=== PATIENT | male | born 1955 | race Caucasian/White ===

== ENCOUNTER 2017-01-11 21:30 | Observation (INO) | payer BC ==
[~2017-01-11] VITALS: Ht 198.1 cm; Wt 119.3 kg
--- NOTE | ~2017-01-11 | EKG ---
PATIENT: ÁNGELA RESENDEZ UNIT #: [id number] Ventricular Rate: 63 BPM Atrial Rate: 63 BPM P-R Interval: 166 ms QRS Duration: 94 ms Q-T Interval: 392 ms QTC Calculation(Bezet): 401 ms P [place]: 94 degrees Calculated R [place]: -11 degrees Calculated T [place]: 57 degrees Diagnosis Line: Normal sinus rhythm Diagnosis Line: Normal ECG Diagnosis Line: No previous ECGs available Diagnosis Line: Confirmed by MARICHUY WALKER MD ([id number]) on 01/12/2017 Diagnosis Line: 6:25:15 PM INTERPRETING MD: DENISE JOYCE
--- NOTE | ~2017-01-11 | HP ---
Unit #: [id number] #: [id number] Patient: ÁNGELA RESENDEZ [id number] [address] [place], [place] [address] [id number] I MR#: [id number] NAME: ÁNGELA RESENDEZ ROOM: 55 Age: 61 Sex: M Admission Date: 01/12/2017 : 1955 Attending Physician: Phong Torres M.D. Primary Care Physician: Rosio Hagan M.D. HISTORY AND PHYSICAL CHIEF COMPLAINT Chest pain. HISTORY OF PRESENT ILLNESS The patient is a 61-year-old male who presented to [facility] secondary to chest pain. He states that on the day of presentation he initially had an episode of diarrhea and then some nausea with vomiting. He states that during some of the vomiting episodes, he began to experience palpitations and then had what felt like "an elephant on his chest." Patient denied any radiation to the neck, jaw, or left arm. No diaphoresis. It resolved spontaneously. PAST MEDICAL HISTORY 1. Hypertension. 2. Hyperlipidemia. 3. Atrial fibrillation, on Coumadin. 4. Type 2 diabetes. 5. Irritable bowel syndrome. 6. Hypothyroidism. PAST SURGICAL HISTORY None, though the patient does have a significant hernia which he has never had operated on. SOCIAL HISTORY Patient denies alcohol, tobacco, or illicit drug use. FAMILY HISTORY Stroke and heart failure. ALLERGIES Penicillin. HOME MEDICATIONS 1. Xanax 1 mg at bedtime. 2. Dicyclomine 10 mg p.o. t.i.d. 3. Glucotrol 10 mg p.o. b.i.d. 4. Metformin 500 mg in the morning and 100 mg in the evening. 5. Atorvastatin 40 mg daily. 6. Clonidine 0.1 mg p.o. b.i.d. 7. Hydralazine 50 mg p.o. q.i.d. 8. Hydrochlorothiazide 12.5 mg p.o. daily. 9. Zestril 40 mg daily. 10. Metoprolol tartrate 100 mg p.o. b.i.d. Unit #: [id number] #: [id number] Patient: ÁNGELA RESENDEZ 11. Synthroid 50 mcg p.o. daily. 12. Flonase 1 spray each nostril daily. 13. Coumadin 7.5 mg p.o. daily. REVIEW OF SYSTEMS A 10-point review of systems was obtained and negative except as per HPI. PHYSICAL EXAMINATION VITAL SIGNS: Temperature 98.5, pulse 78, and blood pressure 143/84. GENERAL: A 61-year-old male in no acute distress who appears stated age. HEENT: Pupils equally round. Extraocular movements intact. Mucous membranes are dry. NECK: Supple. No JVD, no lymphadenopathy. CARDIAC: Irregular rate and rhythm. No murmurs, gallops, or rubs. LUNGS: Clear to auscultation bilaterally. ABDOMEN: Nontender and nondistended. Positive bowel sounds. He does have a hernia. EXTREMITIES: No clubbing, cyanosis, or edema. They are warm and dry. PSYCHIATRIC: Alert and oriented x3. Affect is appropriate. NEUROLOGIC: Cranial nerves II-XII intact grossly. Patient moves all extremities equally and with purpose. SKIN: No rashes, bruises, or ulcers. MUSCULOSKELETAL: No muscle or joint pain. No muscle or joint swelling. DIAGNOSTIC STUDIES LABORATORY: Blood sugar is 165; otherwise, chemistries are essentially normal. CK-MB is 4.7 but troponin is negative. CBC is normal. INR is 1.5. IMAGING: No acute findings in the GI tract. He is noted to have a benign cyst in the right kidney and a large, fat-containing, supraumbilical ventral hernia. ASSESSMENT AND PLAN 1. Chest pain. The patient has been admitted for stress testing. This is most likely secondary to his acute gastrointestinal illness of nausea, vomiting, and diarrhea. If the patient's stress testing is normal, he will be discharged home. 2. Hypertension. Continue home medications. 3. Hyperlipidemia. Continue home medications. 4. Diabetes. Continue home medications. 5. Prophylaxis. No deep venous thrombosis prophylaxis needed as the patient is low risk and will likely be discharged within the next 24 hours. 1. Dictated by Niranjan Kamara TD: 01/12/2017 17:01 JOB #: [id number] Unit #: [id number] #: [id number] Patient: ÁNGELA RESENDEZ HISTORY AND PHYSICAL Page 1 of 1 X Phong Torres MD HISTORY AND PHYSICAL
--- NOTE | ~2017-01-11 | CR72 ---
[facility] A Service of [facility] & [facility] RADIOLOGY TEXT RESULTS PATIENT: ÁNGELA RESENDEZ LOCATION: [facility] 55- : [birth year] UNIT #: [id number] AGE: [address]: Phong Torres MD SEX: M ORDER DR: [id number] [facility] [address] [place], [place] [address] [id number] I MR#: [id number] Acc #: [id number] NAME: ÁNGELA RESENDEZ : 1955 SEX: M STUDY DATE/TIME: 01/11/2017 UNIT: [facility] ROOM: [facility] STUDY DESCRIPTION: CR Chest Single View Portable Attending Physician: Phong Torres M.D. Ordering Physician: Duarte Steward D.O. Primary Care Physician: Rosio Hagan M.D. MEDICAL IMAGING REPORT This report is preliminary unless electronic signature is present EXAM Portable chest 01/11 22:20 hours INDICATIONS Chest pain and vomiting for 1 day. Diarrhea for 3 days. COMPARISON: 08/02/2014. FINDINGS A single AP portable view of the chest shows both lungs to be clear. The heart is normal in size. The mediastinal contour is normal. No significant bone abnormalities are seen. IMPRESSION Normal portable chest. Dictated by... Ernie Strong Jr., M.D. THIS IS AN ELECTRONICALLY VERIFIED REPORT Ernie Strong Jr., M.D. at 01/13/2017 5:50 AM JACKIE/osmani TD: 01/12/2017 09:40 JOB #: [id number] MEDICAL IMAGING REPORT Page 1 of 1 COPY
--- NOTE | ~2017-01-11 | TH ---
Unit #: [id number] #: [id number] Patient: ÁNGELA RESENDEZ [id number] [address] [address] [id number] I MR#: [id number] NAME: ÁNGELA RESENDEZ : 1955 SEX: M STUDY DATE/TIME: 01/12/2017 UNIT: C5B ROOM: 557 STUDY DESCRIPTION: Attending Physician: Phong Torres M.D. Primary Care Physician: Rosio Hagan M.D. CARDIOLOGY REPORT EXAM Exercise Cardiolite stress test, nuclear portion. PROCEDURE Using technetium 99m labeled Cardiolite, rest and stress SPECT images were obtained. Multiple SPECT images were obtained in various views including horizontal and vertical long axis and short axis views of the left ventricle. Images were obtained by gated SPECT method. Patient was administered 10.77 mCi of Cardiolite at rest. Patient was administered 30.8 mCi of Cardiolite at peak exercise. Total exercise time is 6 minutes. On the stress images, there is normal perfusion noted. The rest images show mild decreased isotope activity intra-apically consistent with soft tissue artifact. Comparing rest and stress images, there is no stress-induced ischemia noted. The left ventricular ejection fraction is calculated to be 48%. There is mild global hypokinesis seen. The left ventricular cavity is moderately dilated both at rest and post stress. CONCLUSION 1. No obvious stress-induced ischemia noted. 2. The left ventricular ejection fraction is calculated to be 48%. 3. There is mild global hypokinesis seen. 4. The left ventricular cavity is moderately dilated both at rest and post-stress. 5. Suspicion for mild nonischemic dilated cardiomyopathy. 6. Technically limited study due to patient's body habitus. Clinical correlation is requested. 1. Dictated by... Niranjan Stevens TD: 01/12/2017 14:29 JOB #: [id number] Unit #: [id number] #: [id number] Patient: ÁNGELA RESENDEZ CARDIOLOGY REPORT Page 1 of 1 X Bertha Flores MD <ELECTRONICALLY SIGNED> 02/19/17 1524 CARDIOLOGY REPORT
--- NOTE | ~2017-01-11 | ST ---
Unit #: [id number] #: [id number] Patient: ÁNGELA RESENDEZ [id number] [place], [place] [address] [id number] I MR#: [id number] NAME: ÁNGELA RESENDEZ : 1955 SEX: M STUDY DATE/TIME: 01/12/2017 UNIT: C5B ROOM: 557 STUDY DESCRIPTION: Cardiac stress test. Attending Physician: Phong Torres M.D. Primary Care Physician: Rosio Hagan M.D. CARDIOLOGY REPORT EXAM Exercise Cardiolite stress test. FINDINGS Baseline EKG normal sinus rhythm with a rate of 75 beats per minute, with Q waves noted in V1 and V2, with questionable old septal infarct. The patient exercised on the treadmill using Lakhwinder protocol for 6 minutes, achieving a workload of 7.00 METS and 101% of the maximum age-predicted heart rate was reached at 163 beats per minute, with a maximum blood pressure response of 230/96 mmHg. The patient had no complaints of chest pain, palpitations or dizziness. EKG during exercise showed no ST-T wave abnormalities. It was noted for premature ventricular complexes. Occasional premature atrial complexes were also seen. The test was terminated secondary to achieving target heart rate. IMPRESSION 1. Functional class 2 with fair exercise tolerance with a workload of 7.00 METS. 2. 101% of the maximal age-predicted heart rate was reached at 162 beats per minute, with a hypertensive blood pressure response. 3. The patient had no complaints of chest pain, palpitations or dizziness. 4. EKG during exercise showed no ST-T wave abnormalities. It was noted for frequent premature ventricular complexes and occasional premature complex. 5. Cardiolite was injected at peak exercise, with radionuclide test pending. Please correlate these results with nuclear images. Dictated by... Deepak Martinez A.P.R.N. for Niranjan Fish/jaylin TD: 01/12/2017 12:16 JOB #: [id number] CC: [facility] Niranjan Stevens M.D. Unit #: [id number] #: [id number] Patient: ÁNGELA RESENDEZ CARDIOLOGY REPORT Page 1 of 1 X Deepak Martinez APRN CARDIOLOGY REPORT
--- NOTE | ~2017-01-11 | CT4 ---
[facility] A Service of [facility] & [facility] RADIOLOGY TEXT RESULTS PATIENT: ÁNGELA RESENDEZ LOCATION: [facility] 557-01 : [birth year] UNIT #: [id number] AGE: [address]: Phong Torres MD SEX: M ORDER DR: [id number] [facility] [address] [place], [place] [address] [id number] I MR#: [id number] #: [id number] NAME: ÁNGELA RESENDEZ : 1955 SEX: M STUDY DATE/TIME: 01/12/2017 01:56 UNIT: [facility] ROOM: [facility] STUDY DESCRIPTION: CT Abd and Pelv Wo Cont Attending Physician: Phong Torres M.D. Ordering Physician: Duarte Steward D.O. Primary Care Physician: Rosio Hagan M.D. MEDICAL IMAGING REPORT This report is preliminary unless electronic signature is present EXAM CT abdomen and pelvis, 01/12 at 01:56 INDICATION Chest pain and atrial fibrillation with nausea, vomiting and diarrhea for four days. Generalized weakness. TECHNIQUE Axial noncontrast images were obtained through the abdomen and pelvis. Multiplanar reformats were obtained. This CT exam was performed with one or more of the following radiation dose reduction techniques: automatic exposure control, adjustment of mA and/or kV according to patient size, and iterative reconstruction. COMPARISON No comparison. FINDINGS ABDOMEN: Lung bases are clear except for a right lower lobe calcified granuloma. Gallbladder is unremarkable. There is some atherosclerotic disease. No renal or ureteral stones. No hydronephrosis. There is an exophytic right renal lesion measuring 2.1 cm. This is likely a cyst. Outpatient renal ultrasound recommended to confirm. Unenhanced solid organs are otherwise normal. Unopacified GI tract is grossly normal. There is a large fat-containing supraumbilical hernia. The defect in the fascia measures 4.1 x 3.5 cm. The hernia sac measures 12.7 x 4.1 x 9.8 cm. PELVIS: There are no lower ureteral stones. The bladder is normal. No free fluid. Unopacified GI tract, including the appendix, is normal. There is extensive degenerative disease in the lumbar spine with multilevel central canal stenosis. [facility] A Service of [facility] & [facility] RADIOLOGY TEXT RESULTS PATIENT: ÁNGELA RESENDEZ LOCATION: [facility] 557-01 : 57 UNIT #: [id number] AGE: [address]: Phong Torres MD SEX: M ORDER DR: IMPRESSION 1. No renal or ureteral stones. No hydronephrosis. 2. Exophytic right renal lesion. This is probably a cyst but outpatient renal ultrasound recommended to confirm. 3. No acute findings in the GI tract. Normal appendix. 4. Large fat-containing supraumbilical ventral wall hernia. Dictated by... Ernie Strong Jr., M.D. THIS IS AN ELECTRONICALLY VERIFIED REPORT Ernie Strong Jr., M.D. at 01/13/2017 5:52 AM JACKIE/hayley TD: 01/12/2017 10:12 JOB #: [id number] MEDICAL IMAGING REPORT Page 1 of 1 COPY
--- NOTE | ~2017-01-11 | CO ---
Unit #: [id number] #: [id number] Patient: ÁNGELA RESENDEZ [id number] [address] [address] [id number] I MR#: [id number] NAME: ÁNGELA RESENDEZ ROOM: 55 Age: 61 Sex: M Admission Date: 01/12/2017 : 1955 Attending Physician: Phong Torres M.D. Primary Care Physician: Rosio Hagan M.D. CONSULTATION REPORT REASON FOR CONSULTATION Chest pain. HISTORY OF PRESENT ILLNESS This is a 61-year-old white male who is known to Dr. Flores that has a history of paroxysmal atrial fibrillation. He is on anticoagulation with Coumadin. He is known to have hypertension, hyperlipidemia, and diabetes as risk factors for ischemic heart disease. The patient comes to the emergency room with a complaint of chest pain. He says he ate dinner at approximately 6 p.m. At 8 p.m., he began to vomit and have episodes of diarrhea. He developed substernal chest pain, what he describes as if someone was "sitting on his chest." There was no radiation to his neck, arm, or jaw. He had no associated dyspnea or dizziness. He came to the emergency room for evaluation and was treated with aspirin and nitroglycerin paste. His chest pain eased at approximately 11:30 p.m. His troponin is initially negative. Electrocardiogram shows no acute ischemic changes. His INR is subtherapeutic at 1.5. PAST MEDICAL HISTORY 1. A 2D echocardiogram, October 09, 2008, shows an ejection fraction of 50% to 55% with mild concentric left ventricular hypertrophy. There is mild mitral regurgitation and mild tricuspid regurgitation. 2. Hypertension. 3. Hyperlipidemia. 4. Paroxysmal atrial fibrillation on anticoagulation with Coumadin. 5. Diabetes mellitus type 2. 6. Lifelong nonsmoker. 7. Irritable bowel syndrome. 8. Hypothyroidism. PAST SURGICAL HISTORY No previous surgeries. SOCIAL HISTORY The patient works at [employer]. He also cares for his ill mother. He has never smoked. He denies illicit drug and alcohol use. FAMILY HISTORY Mother is currently living but has no history of coronary artery disease. Father from stroke and congestive heart failure. ALLERGIES Unit #: [id number] #: [id number] Patient: ÁNGELA RESENDEZ Penicillin and egg. HOME MEDICATIONS 1. Xanax 1 mg nightly. 2. Dicyclomine 10 mg t.i.d. 3. Glipizide 10 mg b.i.d. 4. Metformin 500 mg b.i.d. 5. Atorvastatin 40 mg daily. 6. Clonidine 0.1 mg b.i.d. 7. Hydralazine 50 mg q.i.d. 8. Hydrochlorothiazide 12.5 mg daily. 9. Zestril 40 mg daily. 10. Metoprolol tartrate 100 mg b.i.d. 11. Levothyroxine 50 mcg daily. 12. Flonase one spray each nostril b.i.d. 13. Coumadin 7.5 mg daily Thursday through Thursday. REVIEW OF SYSTEMS CONSTITUTIONAL: Negative for fever, chills. Has no weight gain or weight loss. HEENT: No headache, hearing or visual changes, difficulty with swallowing. Negative for dizziness. CARDIOVASCULAR: Has chest pain described in the HPI. Reports occasional palpitations. No paroxysmal nocturnal dyspnea or orthopnea. Denies syncope or near syncope. RESPIRATORY: Negative for dyspnea, cough, or hemoptysis. GASTROINTESTINAL: Reports nausea, vomiting of nonbloody emesis. No hematochezia or melena. EXTREMITIES: Negative for lower extremity edema. PHYSICAL EXAMINATION VITAL SIGNS: Blood pressure 178/89, heart rate 66, temperature 97.7, BMI 30. GENERAL: This is a tall well-developed 61-year-old white male who is in no acute distress. NEUROLOGIC: He is awake, alert, and oriented. There are no focal weaknesses. NECK: Trachea is midline. No thyromegaly or lymphadenopathy. No jugular venous distention. HEART: S1, S2 heart sounds are normal. No murmurs. No rubs. No clicks. Regular rate and rhythm. LUNGS: Clear without rales, rhonchi, wheezing. ABDOMEN: Soft, nontender with bowel sounds present. EXTREMITIES: Without leg edema. SKIN: Warm and dry. DIAGNOSTIC STUDIES LABORATORY: Glucose 169, BUN 31, creatinine 1.2, sodium 138, potassium 4.2. Troponin is less than 0.05 x2 and less than 0.03. CK total 109, MB 5.1, MB index 4.7. Hemoglobin A1c 6.5. Cholesterol 99, triglycerides 83, LDL 43, HDL 39. TSH 3.13. Pro time is 16.7. INR 1.5. White count 5.9, hemoglobin 15.2, hematocrit 45.8, platelet count 183,000. IMAGING: Chest x-ray shows no active disease. CT of the abdomen and pelvis shows exophytic right renal lesion, probably a cyst. Unit #: [id number] #: [id number] Patient: ÁNGELA RESENDEZ CARDIOVASCULAR: Electrocardiogram: Normal sinus rhythm with a rate of 63 beats per minute with questionable old septal infarct, otherwise normal. IMPRESSION 1. Chest pain, probably secondary to gastroesophageal reflux disease. 2. Rule out ischemic heart disease. 3. Hypertension. 4. Hyperlipidemia. 5. Noninsulin-dependent diabetes mellitus type 2. 6. Diarrhea, vomiting - questionable etiology. 7. Subtherapeutic INR. PLAN 1. Cardiology was consulted for evaluation of chest pain. The patient's chest pain is atypical for ischemic heart disease. He does have multiple risk factors. Will proceed with exercise Cardiolite stress test to rule out ischemic heart disease. 2. Continue current medications as previous. 3. Will follow the patient with you. Thank you for allowing us to assist with this patient's care. Dictated by... Brian ZavaletaPMindiRMindiNMindi for Niranjan Fish/loan TD: 01/12/2017 12:01 JOB #: [id number] CC: Rosio Hagan M.D. CONSULTATION REPORT Page 1 of 1 X Deepak Martinez APRN X CONSULTATION REPORT
[~2017-01-11 21:30] MED LIST: ALPRAZOLAM PO; APRESOLINE PO; CLONIDINE PO; COUMADIN PO; FLEXERIL PO; GLUCOTROL PO; HCTZ PO; LIPITOR PO; LOPRESSOR PO
[2017-01-11 22:40] LABS: POC - TROPONIN <0.05 ng/mL (<=0.05)
[2017-01-11 22:42] LABS: BASOPHIL% 0.3 % (0-2.5); EOSINOPHIL# 0.1 X10e3 (0-0.7); EOSINOPHIL% 2.4 % (0.0-7.0); HEMATOCRIT 45.8 % (38.0-50.0); HEMOGLOBIN 15.2 gm/dL (13.0-16.0); LYMPHOCYTE# 0.9 X10e3 (1.0-3.5); LYMPHOCYTE% 15.4 % (17.0-45.0); MEAN CELL VOLUME 97.3 FL (83-96); MEAN CORPUSCULAR HEMOGLOBIN 32.4 PG (28-34); MEAN CORPUSCULAR HGB CONC 33.3 g/dL (30-36); MEAN PLATELET VOLUME 9.1 FL (6.5-11.5); MONOCYTE# 0.4 X10e3 (0-1.0); MONOCYTE% 7.5 % (3.0-12.0); NEUTROPHIL# 4.4 X10e3 (1.5-7.1); NEUTROPHIL% 74.4 % (40-75); PLATELET COUNT 183 X10e3 (140-420); RED CELL DISTRIBUTION WIDTH 13.5 % (11.0-15.5); WHITE BLOOD COUNT 5.9 X10e3 (4.0-10.5)
[2017-01-11 22:45] LABS: DIFF IND NO
[2017-01-11 22:56] LABS: INR 1.5; PARTIAL THROMBOPLASTIN TIME 32.3 SECONDS (23.5-31.3); PROTHROMBIN TIME (PATIENT) 16.7 SECONDS (10.0-11.7)
[2017-01-11 23:07] LABS: ALBUMIN SERUM 4.5 g/dL (3.5-5.0); BILIRUBIN, DIRECT 0.1 mg/dL (0.0-0.2); BILIRUBIN,INDIRECT 0.4 mg/dL (0.0-0.9); BILIRUBIN,TOTAL 0.5 mg/dL (0.2-2.0); BUN/CREATININE RATIO 25.83; CALCIUM SERUM 9.3 mg/dL (8.4-10.2); CREATININE SERUM 1.2 mg/dL (0.6-1.4); GLOM FILT RATE Estimated 65.4 mL/min (>60); POTASSIUM 4.2 mmol/L (3.5-5.1); PROTEIN TOTAL SERUM 7.6 g/dL (6.0-8.3)
[2017-01-12 00:13] LABS: URINE SOURCE CLEAN CATCH
[2017-01-12 00:20] LABS: URINE APPEARANCE CLEAR; URINE BILIRUBIN NEG (NEG); URINE BLOOD NEG (NEG); URINE COLOR YELLOW; URINE GLUCOSE 500 MG/DL (NEG); URINE KETONE NEG (NEG); URINE LEUKOCYTE ESTERASE NEG (NEG); URINE NITRATE NEG (NEG); URINE PROTEIN NEG (NEG); URINE SPECIFIC GRAVITY 1.018 (1.003-1.035); URINE UROBILINOGEN 0.2 MG/DL (NEG)
[2017-01-12 00:22] LABS: POC - CKMB 2.9 ng/mL (0.0-7.9); POC - TROPONIN <0.05 ng/mL (<=0.05)
[2017-01-12 00:25] LABS: CULTURE INDICATED? NO
[2017-01-12] MEDS ORDERED: ALPRAZOLAM1 MG PO (04:26)
[2017-01-12] MEDS ORDERED: DICYCLOMINE HCL10 MG PO (04:27)
[2017-01-12] MEDS ORDERED: GLUCOTROL10 MG PO (04:27)
[2017-01-12] MEDS ORDERED: CLONIDINE HCL0.1 MG PO (04:29)
[2017-01-12] MEDS ORDERED: METFORMIN HCL500 M1 PO (04:29)
[2017-01-12] MEDS ORDERED: ATORVASTATIN CA40 MG PO (04:29)
[2017-01-12] MEDS ORDERED: HYDROCHLOROTH12.5 MG PO (04:30)
[2017-01-12] MEDS ORDERED: HYDRALAZINE HCL50 MG PO (04:30)
[2017-01-12] MEDS ORDERED: ZESTRIL40 MG PO (04:31)
[2017-01-12] MEDS ORDERED: METOPROLOL TAR100 MG PO (04:31)
[2017-01-12] MEDS ORDERED: SYNTHROID25 MCG PO (04:32)
[2017-01-12] MEDS ORDERED: FLONASE 0.05% N16 G1 (04:32)
[2017-01-12] MEDS ORDERED: COUMADIN5 MG PO (04:33)
[2017-01-12 07:40] LABS: CHOLESTEROL 99 mg/dL (0-200); HDL CHOLESTEROL 39 mg/dL (29-75); LDL CHOLESTEROL 43 mg/dL (-130); LDL/HDL RATIO 1 RATIO (0-4); TRIGLYCERIDES 83 mg/dL (10-160)
[2017-01-12 08:26] LABS: %MB 4.7 % (0.0-4.0); MB 5.1 ng/ml
[2017-01-12] MEDS ORDERED: COUMADIN10 MG PO (16:44)
[2017-01-12] MEDS ORDERED: BAYER CHEWABLE81 MG PO (16:49)
== END 2017-01-12 17:55 | disposition home or self-care (01) | DRG 313 ==
LOC: CED 21:30 → C5B 01-12 02:30 → CED 01-12 02:30 → C5B 01-12 02:30 → CED 01-12 02:37 → C5B 01-12 02:37
PROVIDERS: Emergency Medicine; Family Medicine
DX: R07.9 Chest pain, unspecified (principal); I48.0 Paroxysmal atrial fibrillation; I10 Essential (primary) hypertension; E78.5 Hyperlipidemia, unspecified; E11.9 Type 2 diabetes mellitus without complications; E03.9 Hypothyroidism, unspecified; R19.7 Diarrhea, unspecified; R11.10 Vomiting, unspecified; R79.1 Abnormal coagulation profile; Z82.49 Family history of ischemic heart disease and other diseases of the circulatory system; Z88.0 Allergy status to penicillin; Z79.84 Long term (current) use of oral hypoglycemic drugs; Z79.01 Long term (current) use of anticoagulants; Z79.899 Other long term (current) drug therapy; Z98.890 Other specified postprocedural states
CPT/HCPCS: 36415; 71010; 74176; 78452; 80048; 80061; 80076; 81003; 82550; 82553; 83036; 83690; 84443; 84484; 85025; 85610; 85730; 93005; 93017; 99285; A9500; G0378